=== PATIENT | male | born 1930 | race Caucasian/White ===

== ENCOUNTER 2019-03-18 01:46 | Observation (INO) | payer OTHER ==
[2019-03-18 02:51] LABS: Protime INR 1.17
[2019-03-18 02:52] LABS: Absolute Lymphocytes (CBC) 0.5 K/uL (0.7-4.9); Absolute Monocytes 0.3 K/uL (0.1-1.3); Absolute Neutrophil 3.5 K/uL (1.8-8.0); Basophils % 0.4 % (0-1.3); Eosinophils % 0.5 % (0-4.4); Hematocrit 37.5 % (39.6-49.0); Lymphocytes % 11.4 % (15.3-44.8); MPV 8.1 fL (7.6-11.3); Monocytes % 6.3 % (3.3-12.3); RBC Red Blood Cell Count 4.37 M/uL (4.33-5.43)
[2019-03-18 03:09] LABS: Albumin 3.8 g/dL (3.4-5.0); Bilirubin Direct 0.2 mg/dL (0-0.2); Bilirubin Total 0.6 mg/dL (0.2-1.0); Magnesium 2.6 mg/dL (1.8-2.4); Potassium 3.8 mmol/L (3.5-5.1); Protein, Total 7.3 g/dL (6.4-8.2)
--- NOTE | 2019-03-18 05:25 | EDPHYS ---
Physician Documentation [facility] Name: Jim Basilio Age: 88 yrs Sex: Male : 1930 Arrival Date: 03/18/2019 Time: 01:48 Bed 8 Private MD: ED Physician Harjit Meeks HPI: 03/18 03:22 This 88 yrs old Male presents to ER via Wheelchair with complaints of Chest tw4 Pain. 03:22 The patient or guardian reports chest pain that is located primarily in the anterior tw4 chest wall. Onset: today. The pain does not radiate. Associated signs and symptoms: The patient has no apparent associated signs or symptoms. The chest pain is described as dull. Duration: The patient or guardian reports a single episode. Modifying factors: The symptoms are alleviated by nothing. the symptoms are aggravated by nothing. Severity of pain: At its worst the pain was moderate in the emergency department the pain is unchanged. The patient has not experienced similar symptoms in the past. Historical: - Allergies: 02:28 No Known Allergies; ea - Home Meds: 02:28 gabapentin oral oral [Active]; Simvastatin Oral [Active]; ea - PMHx: 02:28 diabetes; ea - PSHx: 02:28 Hernia repair; ea - Immunization history:: Adult Immunizations up to date. - Social history:: Smoking status: Patient/guardian denies using tobacco. - Ebola Screening: : No symptoms or risks identified at this time. ROS: 03:22 Constitutional: Negative for fever, chills, and weight loss, Eyes: Negative for injury, tw4 pain, redness, and discharge, Respiratory: Negative for shortness of breath, cough, wheezing, and pleuritic chest pain, Abdomen/GI: Negative for abdominal pain, nausea, vomiting, diarrhea, and constipation, Back: Negative for injury and pain, MS/Extremity: Negative for injury and deformity, Skin: Negative for injury, rash, and discoloration, Neuro: Negative for headache, weakness, numbness, tingling, and seizure. 03:22 Cardiovascular: Positive for chest pain, Negative for edema, orthopnea, palpitations, paroxysmal nocturnal dyspnea. Exam: 03:22 Constitutional: This is a well developed, well nourished patient who is awake, alert, tw4 and in no acute distress. Head/Face: Normocephalic, atraumatic. Chest/axilla: Normal chest wall appearance and motion. Nontender with no deformity. No lesions are appreciated. Cardiovascular: Regular rate and rhythm with a normal S1 and S2. No gallops, murmurs, or rubs. Normal PMI, no JVD. No pulse deficits. Respiratory: Lungs have equal breath sounds bilaterally, clear to auscultation and percussion. No rales, rhonchi or wheezes noted. No increased work of breathing, no retractions or nasal flaring. Abdomen/GI: Soft, non-tender, with normal bowel sounds. No distension or tympany. No guarding or rebound. No evidence of tenderness throughout. Back: No spinal tenderness. No costovertebral tenderness. Full range of motion. MS/ Extremity: Pulses equal, no cyanosis. Neurovascular intact. Full, normal range of motion. Neuro: Awake and alert, GCS 15, oriented to person, place, time, and situation. Cranial nerves II-XII grossly intact. Motor strength 5/5 in all extremities. Sensory grossly intact. Cerebellar exam normal. Normal gait. Vital Signs: 02:00 BP 125 / 29; Pulse 68; Resp 18; Temp 98.2; Pulse Ox 99% ; Weight 55.34 kg; Height 5 ft. ea 3 in. (160.02 cm); Pain 5/10; 02:39 BP 134 / 41; Pulse 66; Resp 18; Pulse Ox 100% on R/A; ea 03:32 BP 117 / 54; Pulse 68; Resp 18; Pulse Ox 98% on R/A; tl2 04:11 BP 129 / 39; Pulse 67; Resp 18; Pulse Ox 98% on R/A; tl2 05:21 BP 121 / 73; Pulse 82; Resp 18; Pulse Ox 98% on R/A; ea 06:34 BP 116 / 60; Pulse 73; Resp 19; Temp 97.6(TE); Pulse Ox 98% on R/A; ea 07:15 BP 110 / 55; Pulse 65; Resp 15; Pulse Ox 95% ; sv 02:00 Body Mass Index 21.61 (55.34 kg, 160.02 cm) ea MDM: 02:10 Patient medically screened. tw4 03:22 Differential diagnosis: abnormal EKG, acute myocardial infarction, costochondritis, tw4 esophagitis, gastritis, herpes zoster, pancreatitis, peptic ulcer disease, pericarditis, pneumonia, unstable angina. Data reviewed: vital signs, nurses notes. Data interpreted: Pulse oximetry: Interpretation: normal. Counseling: I had a detailed discussion with the patient and/or guardian regarding: the historical points, exam findings, and any diagnostic results supporting the discharge/admit diagnosis. 07:00 Physician consultation: Isaac Pope MD was called at 07:00, was contacted at 07:00, 4 regarding admission, to the telemetry unit. patient's condition, and will see patient in inpatient room. Admission orders: after a detailed discussion of the patient's condition and case, the admit orders are written by me. 03/18 02:12 Order name: Basic Metabolic Panel; Complete Time: 06:12 03/18 06:12 Interpretation: Normal except: GFR 86; GLUC 150. 03/18 02:12 Order name: CBC with Diff; Complete Time: 06:12 03/18 06:12 Interpretation: Normal except: HGB 13.2; HCT 37.5; PLT 126. 03/18 02:12 Order name: LFT's; Complete Time: 06:12 03/18 06:12 Interpretation: Within normal limits. 03/18 02:12 Order name: Magnesium; Complete Time: 06:12 03/18 06:12 Interpretation: Normal except: MG 2.6. 03/18 02:12 Order name: NT PRO-BNP; Complete Time: 06:13 03/18 06:13 Interpretation: Within normal limits: NT PRO-BNP 380. 03/18 02:12 Order name: PT-INR; Complete Time: 06:12 03/18 06:12 Interpretation: Normal except: PT 13.7. 03/18 02:12 Order name: Troponin (emerg Dept Use Only); Complete Time: 06:13 03/18 06:13 Interpretation: Within normal limits: TROPED < 0.02. 03/18 07:15 Order name: Basic Metabolic Panel EDMS 03/18 07:15 Order name: Basic Metabolic Panel EDMS 03/18 07:15 Order name: CBC with Automated Diff EDMS 03/18 07:15 Order name: CBC with Automated Diff EDMS 03/18 07:15 Order name: Troponin I [facility] 03/18 07:15 Order name: Troponin I [facility] 03/18 07:15 Order name: Troponin I [facility] 03/18 02:12 Order name: XRAY Chest (1 view) 03/18 02:12 Order name: EKG; Complete Time: 02:13 03/18 02:12 Order name: Cardiac monitoring; Complete Time: 02:20 03/18 02:12 Order name: EKG - Nurse/Tech; Complete Time: 02:20 03/18 02:12 Order name: IV Saline Lock; Complete Time: 02:42 03/18 02:12 Order name: Labs collected and sent; Complete Time: 02:42 03/18 02:12 Order name: O2 Per Protocol; Complete Time: 02:20 03/18 02:12 Order name: O2 Sat Monitoring; Complete Time: 02:21 03/18 02:31 Order name: CT Chest For PE Angio [facility] 03/18 07:15 Order name: EKG Electrocardiogram [facility] 03/18 07:15 Order name: EKG Electrocardiogram [facility] 03/18 07:15 Order name: EKG Electrocardiogram [facility] 03/18 07:15 Order name: EKG Electrocardiogram [facility] EC:01 Rate is 66 beats/min. Rhythm is regular. QRS [place] is Normal. SC interval is normal. QRS tw4 interval is normal. QT interval is normal. No Q waves. T waves are Normal. No ST changes noted. Clinical impression: NSR w/ Non-specific ST/T Changes. Interpreted by me. Reviewed by me. Administered Medications: No medications were administered Disposition: 03/18/19 05:24 Hospitalization ordered by Isaac Pope for Observation. Preliminary diagnosis is Chest pain, unspecified. - Bed requested for Telemetry/MedSurg (observation). - Status is Observation. sv - Condition is Stable. - Problem is new. - Symptoms have improved. UTI on Admission? No Signatures: Dispatcher [employer] EDMS Vania Burns RN Jyoti Mcgarry RN Dayanna Everett RN Harjit Quintana ea, MD MD tw4 Corrections: (The following items were deleted from the chart) 07:21 05:24 Hospitalization Ordered by Isaac Pope MD for Observation. Preliminary diagnosis dw is Chest pain, unspecified. Bed requested for Telemetry/MedSurg (observation). Status is Observation. Condition is Stable. Problem is new. Symptoms have improved. UTI on Admission? No. tw4 08:16 07:21 03/18/2019 05:24 Hospitalization Ordered by Isaac Pope MD for Observation. sv Preliminary diagnosis is Chest pain, unspecified. Bed requested for Telemetry/MedSurg (observation). Status is Observation. Condition is Stable. Problem is new. Symptoms have improved. UTI on Admission? No. dw
--- NOTE | 2019-03-18 05:25 | ER ---
Nurse's Notes [facility] Name: Jim Basilio Age: 88 yrs Sex: Male : 1930 Arrival Date: 03/18/2019 Time: 01:48 Bed 8 Private MD: Diagnosis: Chest pain, unspecified Presentation: 03/18 02:00 Acuity: JESSICA 3 ea 02:00 Presenting complaint: Patient states: Pt reports he woke up about an hour ago with ea chest pain that radiated to back and neck, pt reports that when he takes deep breaths his chest hurts. Transition of care: patient was not received from another setting of care. Onset of symptoms was March 18, 2019. Risk Assessment: Do you want to hurt yourself or someone else? Patient reports no desire to harm self or others. Initial Sepsis Screen: Does the patient meet any 2 criteria? No. Patient's initial sepsis screen is negative. Does the patient have a suspected source of infection? No. Patient's initial sepsis screen is negative. Care prior to arrival: Medication(s) given: ASA, 81 mg, x 3. 02:00 Method Of Arrival: Wheelchair ea Historical: - Allergies: 02:28 No Known Allergies; ea - Home Meds: 02:28 gabapentin oral oral [Active]; Simvastatin Oral [Active]; ea - PMHx: 02:28 diabetes; ea - PSHx: 02:28 Hernia repair; ea - Immunization history:: Adult Immunizations up to date. - Social history:: Smoking status: Patient/guardian denies using tobacco. - Ebola Screening: : No symptoms or risks identified at this time. Screenin:24 Abuse screen: Denies threats or abuse. Nutritional screening: No deficits noted. ea Tuberculosis screening: No symptoms or risk factors identified. Fall Risk None identified. Assessment: 02:00 General: Appears uncomfortable, Behavior is calm, cooperative, appropriate for age. ea Pain: Complains of pain in chest Pain radiates to back and neck Pain currently is 5 out of 10 on a pain scale. Pain began 1 hour ago. Neuro: Level of Consciousness is awake, alert, obeys commands, Oriented to person, place, time, situation. Cardiovascular: Heart tones S1 S2 present Patient's skin is warm and dry. Respiratory: Airway is patent Respiratory effort is even, unlabored, Respiratory pattern is regular, symmetrical. Derm: Skin is pink, warm \T\ dry. 03:00 Reassessment: Patient and/or family updated on plan of care and expected duration. Pain ea level reassessed. Patient is alert, oriented x 3, equal unlabored respirations, skin warm/dry/pink. Awaiting on lab results. 04:30 Reassessment: Patient and/or family updated on plan of care and expected duration. Pain ea level reassessed. Patient is alert, oriented x 3, equal unlabored respirations, skin warm/dry/pink. 05:30 Reassessment: Patient and/or family updated on plan of care and expected duration. Pain ea level reassessed. Patient is alert, oriented x 3, equal unlabored respirations, skin warm/dry/pink. Awaiting on room assignment. Vital Signs: 02:00 BP 125 / 29; Pulse 68; Resp 18; Temp 98.2; Pulse Ox 99% ; Weight 55.34 kg; Height 5 ft. ea 3 in. (160.02 cm); Pain 5/10; 02:39 BP 134 / 41; Pulse 66; Resp 18; Pulse Ox 100% on R/A; ea 03:32 BP 117 / 54; Pulse 68; Resp 18; Pulse Ox 98% on R/A; tl2 04:11 BP 129 / 39; Pulse 67; Resp 18; Pulse Ox 98% on R/A; tl2 05:21 BP 121 / 73; Pulse 82; Resp 18; Pulse Ox 98% on R/A; ea 06:34 BP 116 / 60; Pulse 73; Resp 19; Temp 97.6(TE); Pulse Ox 98% on R/A; ea 07:15 BP 110 / 55; Pulse 65; Resp 15; Pulse Ox 95% ; sv 02:00 Body Mass Index 21.61 (55.34 kg, 160.02 cm) ea ED Course: 01:48 Patient arrived in ED. es 02:00 Patient has correct armband on for positive identification. Bed in low position. Call ea light in reach. Side rails up X2. traffic monitor specialist on. Pulse ox on. NIBP on. 02:00 Arm band placed on right wrist. Patient placed in an exam room, on a stretcher, on ea pulse oximetry. 02:10 Harjit Meeks MD is Attending Physician. tw4 02:20 Dayanna Briceno, RN is Primary Nurse. ea 02:28 Patient maintains SpO2 saturation greater than 95% on room air. ea 02:31 X-ray completed. Portable x-ray completed in exam room. Patient tolerated procedure kw well. 02:32 XRAY Chest (1 view) In Process Unspecified. EDMS 02:38 Inserted saline lock: 20 gauge in right forearm, using aseptic technique. Blood ea collected. 02:42 Triage completed. ea 03:02 Radiology exam delayed due to lab results not completed at this time. (BUN/Creatinine). kw1 04:30 CT Chest For PE Angio In Process Unspecified. EDMS 05:24 Isaac Pope MD is Hospitalizing Provider. tw4 06:09 No provider procedures requiring assistance completed. Patient admitted, IV remains in ea place. Administered Medications: No medications were administered Outcome: 05:24 Decision to Hospitalize by Provider. tw4 07:55 Admitted to Tele accompanied by tech, family with patient, via wheelchair, room 424, sv with chart, Report called to Luciana VELASQUEZ 07:55 Condition: stable 07:55 Instructed on the need for admit. 08:16 Patient left the ED. sv Signatures: Dispatcher [employer] Vania Flores RN RN sv Salyer, Edna es Whitley, Kimberlee kw Knox, Taylor, RN RN tl2 Dayanna Briceno, Mady Braun RN, ea, Terrence, MD MD tw4
[2019-03-18] MEDS ORDERED: ACETAMINOPHEN 500 MG TAB PO PRN (07:14)
--- NOTE | 2019-03-18 07:53 | EKG ---
Test Date: 2019-03-18 Test Time: 02:17:04 Farm Laborer: RODRIGUEZ MEASUREMENT RESULTS: Intervals: Rate: 66 HI: 160 QRSD: 86 QT: 388 QTc: 406 [place]: P: 43 HI: 160 QRS: -1 T: 50 INTERPRETIVE STATEMENTS: Normal sinus rhythm Normal ECG Compared to ECG 03/18/2019 02:10:45 Atrial premature complex(es) no longer present ST (T wave) deviation no longer present Myocardial infarct finding no longer present Electronically Signed On 03-18-19 07:52:29 CDT by Filipe Lubin
--- NOTE | 2019-03-18 07:53 | EKG ---
Test Date: 2019-03-18 Test Time: 02:10:45 Civil Engineering Professor: RODRIGUEZ MEASUREMENT RESULTS: Intervals: Rate: 66 NH: 158 QRSD: 82 QT: 388 QTc: 406 [place]: P: 30 NH: 158 QRS: 1 T: 52 INTERPRETIVE STATEMENTS: Sinus rhythm with premature atrial complexes Non specific ST abnormality Abnormal ECG Compared to ECG 12/16/2010 18:26:36 Atrial premature complex(es) now present ST (T wave) deviation now present Sinus bradycardia no longer present Electronically Signed On 03-18-19 07:53:20 CDT by Filipe Lubin
--- NOTE | 2019-03-18 07:54 | RAD REPORT ---
EXAM DESCRIPTION: Tushar Single View03/18/2019 2:32 am CLINICAL HISTORY: Chest pain COMPARISON: 2010 FINDINGS: The lungs appear clear of acute infiltrate. The heart is normal size IMPRESSION: No acute abnormalities displayed
[2019-03-18 08:32] VITALS: BMI 21.6
[2019-03-18] MEDS ORDERED: ASPIRIN EC 81 MG TAB PO SCH (09:00)
--- NOTE | 2019-03-18 10:11 | RAD REPORT ---
EXAM DESCRIPTION: CT - Chest For Pe Angio - 03/18/2019 4:29 am CLINICAL HISTORY: CHEST PAIN COMPARISON: None. TECHNIQUE: CT CHEST ANGIOGRAPHY WITH IV CONTRAST on 03/18/2019 2:31 AM CDT. MIPS reconstructions were generated. This exam was performed according to our departmental dose-optimization program, which includes autom ated exposure control, adjustment of the mA and/or kV according to patient size and/or use of iterati ve reconstruction technique. MIP images were generated. FINDINGS: Thoracic aorta is normal in course and caliber without aneurysm or dissection. Pulmonary a rteries are adequately opacified without acute or chronic filling defects. The heart is mildly enlarged. There is no pericardial effusion. Intrathoracic lymph nodes are not enl arged. There is no pleural effusion, pleural thickening or pneumothorax. Central airways are patent. There i s a 7 mm nodule in the anterior aspect of the superior segment of the right lower lobe. There are no acute abnormalities within the limited images of the upper abdomen. There are no acute osseous findings. No suspicious bony lesions. IMPRESSION: No aortic dissection or aneurysm. No pulmonary embolus. 7.0 mm solid pulmonary nodule. Recommend a non-contrast Chest CT at 6-12 months, then consider an add itional non-contrast Chest CT at 18-24 months. These guidelines do not apply to patients younger than 35 years, immunocompromised patients, and julián ents with cancer. Follow up in patients with significant comorbidities as clinically warranted. For l mal[place] cancer screening, adhere to Lung-RADS guidelines. Reference: Radiology. 2017; 284(1):228-43. Electronically signed by: Raphael Padron MD 03/18/2019 4:42 AM CDT Due to temporary technical issues with the PACS/Fluency reporting system, reports are being signed by the in house radiologist as a courtesy to ensure prompt reporting. The interpreting radiologist is f ully responsible for the content of the report.
[2019-03-18] MEDS ORDERED: DEXAMETHASONE 10 MG/ML VIAL IV ONE (13:09)
[2019-03-18 17:00] VITALS: BP 131/51; TEMP 97.5
--- NOTE | 2019-03-18 18:06 | P.SSS ---
Patient History Date of Service: 03/18/19 Reason for admission: CHEST AND BACK PAIN. History of Present Illness: MR. 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 IT WAS UNBEARABLE AND STILL HURTS FOR HOURS CONSTANTLY. HE HAS NO DIAPHORESIS, NAUSEA, VOMITING OR WEAKNESS. PAIN IS AT REST. Allergies No Known Allergies Allergy (Unverified 03/18/19 07:35) Home Medications: Gabapentin 100 mg PO BEDTIME 03/18/19 Methylprednisolone [Medrol dosepack] 4 mg PO DIRECTED #1 jennifer 03/18/19 Simvastatin 20 mg PO BEDTIME 03/18/19 Sitagliptin Phosphate [Januvia*] 100 mg PO DAILY 03/18/19 - Past Medical/Surgical History Has patient received pneumonia vaccine in the past: Yes Diabetic: Yes -: NIDDM -: Inguinal hernia repair X3 - Social History Smoking Status: Never smoker Alcohol use: No CD- Drugs: No Caffeine use: Yes Place of Residence: Home Review of Systems 10-point ROS is otherwise unremarkable General: Weakness, Malaise Musculoskeletal: Neck Pain, Back Pain Physical Examination - Vital Signs Temperature: 97.5 F Blood Pressure: 131/51 Pulse: 76 Respirations: 18 Pulse Ox (%): 98 - Physical Exam General: Alert, Mild distress HEENT: Atraumatic, PERRLA, Mucous membr. moist/pink, EOMI, Sclerae nonicteric Neck: Supple, 2+ carotid pulse no bruit, No LAD, Without JVD or thyroid abnormality Respiratory: Clear to auscultation bilaterally, Normal air movement Cardiovascular: Regular rate/rhythm, Normal S1 S2 Gastrointestinal: Normal bowel sounds, No tenderness Musculoskeletal: No tenderness Integumentary: No rashes Neurological: Normal gait, Normal speech, Normal strength at 5/5 x4 extr, Normal tone, Normal affect Lymphatics: No axilla or inguinal lymphadenopathy - Studies Laboratory Data (last 24 hrs) 03/18/19 02:39: PT 13.7 H, INR 1.17 03/18/19 02:39: WBC 4.3, Hgb 13.2 L, Hct 37.5 L, Plt Count 126 L 03/18/19 02:39: Sodium 136, Potassium 3.8, BUN 16, Creatinine 0.84, Glucose 150 H, Magnesium 2.6 H, Total Bilirubin 0.6, AST 26, ALT 25, Alkaline Phosphatase 50 - Diagnosis (Problem(s)) (1) Atypical chest pain Current Visit: Yes Status: Acute Plan: PAIN HAS NON CARDIAC CHARACTER. I GAVE HIM A DOSE OF STEROID AND HE IMPROVED SIGNIFICANTLY. 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 HIS CARDIAC ENZYMES ARE NEGATIVE. HE WILL FUI OFFICE. HE HAS MEDROL DOSE PACK IF HE CONTINUES TO HAVE PAIN. - Disposition Disposition: ROUTINE DISCHARGE Condition: FAIR
[2019-03-18 18:23] VITALS: O2SAT 96
== END 2019-03-18 18:50 | disposition home or self-care (01) ==
LOC: ER 01:46 → ERHOLD 07:13 → 4TH 07:55
PROVIDERS: ADMIT Internal Medicine; ATTEND Internal Medicine
DX: R07.89 Other chest pain (principal); M54.9 Dorsalgia, unspecified; M54.2 Cervicalgia; R94.31 Abnormal electrocardiogram [ECG] [EKG]; I49.1 Atrial premature depolarization; R91.1 Solitary pulmonary nodule; E11.9 Type 2 diabetes mellitus without complications; M19.90 Unspecified osteoarthritis, unspecified site; Z79.84 Long term (current) use of oral hypoglycemic drugs; Z79.899 Other long term (current) drug therapy
CPT/HCPCS: 93005 ×2; 85025; 80048; 36415; 83735; 85610; 82962 ×3; 80076; 84484 ×3; 83880; 71275; 71045; 99285; Q9967; J1100; G0378 ×2

== ENCOUNTER 2020-09-23 14:47 | Emergency (ER) | payer OTHER ==
[2020-09-23 16:17] LABS: Absolute Lymphocytes (CBC) 0.6 K/uL (0.7-4.9); Basophils % 0.4 % (0-1.3); Hematocrit 37.8 % (39.6-49.0); Lymphocytes % 12.8 % (15.3-44.8); MPV 7.8 fL (7.6-11.3); RBC Red Blood Cell Count 4.39 M/uL (4.33-5.43)
--- NOTE | 2020-09-23 16:32 | RAD REPORT ---
EXAM DESCRIPTION: RAD - Chest Single View - 09/23/2020 4:00 pm CLINICAL HISTORY: COUGH Chest pain. COMPARISON: Chest Pa And Lat (2 Views) dated 10/21/2019; Chest Single View dated 03/18/2019; CHEST PA AND LAT 2 VIEW dated 08/29/2011; ABDOMEN ACUTE SERIES dated 12/16/2010 FINDINGS: Portable technique limits examination quality. The lungs are grossly clear. The heart is normal in size. No displaced fractures. IMPRESSION: No acute intrathoracic process suspected.
[2020-09-23 16:57] LABS: ALT/SGPT 22 U/L (12-78); AST/SGOT 20 U/L (15-37); Albumin 3.3 g/dL (3.4-5.0); Alkaline Phosphatase 52 U/L (45-117); BUN Blood Urea Nitrogen 15 mg/dL (7-18); Bicarbonate 27 mmol/L (21-32); Bilirubin Direct 0.1 mg/dL (0-0.2); Bilirubin Total 0.5 mg/dL (0.2-1.0); Glucose Level 267 mg/dL (74-106); Lipase 62 U/L (73-393); Magnesium 2.2 mg/dL (1.8-2.4); NT PRO-BNP 274 pg/mL (<450); Potassium 4.3 mmol/L (3.5-5.1); Protein, Total 6.9 g/dL (6.4-8.2); Sodium Level 135 mmol/L (136-145); Troponin (Emerg Dept Use Only) < 0.02 ng/mL (0.0-0.045)
[2020-09-23 17:18] LABS: Urine Blood NEGATIVE (NEG); Urine Glucose NEGATIVE (NEG); Urine Protein NEGATIVE (NEG); Urine Specific Gravity 1.015 (1.005-1.030); Urine pH 5.5 (5.0-7.0)
--- NOTE | 2020-09-23 17:36 | RAD REPORT ---
EXAM DESCRIPTION: CTAbdomen Pelvis W Contrast - 09/23/2020 5:01 pm CLINICAL HISTORY: Abdominal pain. ABD PAIN COMPARISON: Abdomen Pelvis W Contrast dated 11/20/2017; CT ABD PELVIS W CONTRAST dated 03/31/2011 TECHNIQUE: Biphasic CT imaging of the abdomen and pelvis was performed with 100 ml non-ionic IV cont rast. All CT scans are performed using dose optimization technique as appropriate and may include automated exposure control or mA/KV adjustment according to patient size. 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 The liver demonstrates no focal mass or biliary dilatation. Tiny nonspecific 2 mm low-density lesion in the left lobe liver seen. Spleen is mildly prominent. There is dilatation of the pancreatic duct seen, a new finding since [address] study. There is a vague hypoenhancing lesion possibly present in the pancreatic head measuring 12-13 mm. The adrenal glands and kidneys are within normal limits. No bowel obstruction, free air, abscess. Prominent stool is seen retained in the colon. Small right i nguinal hernia containing fat as well as the appendix is noted. No evidence of significant lymphaden opathy. Moderate lumbar degenerative changes are present. IMPRESSION: The pancreatic duct appears dilated with suggestion of a possible vague pancreatic head mass present. Recommend follow-up imaging of the pancreas with MRI abdomen/ MRCP. Significant stool is present throughout the colon. Small right inguinal hernia.
--- NOTE | 2020-09-23 18:56 | EDPHYS ---
Physician Documentation [facility] Name: Jim Basilio Age: 89 yrs Sex: Male : 1930 Arrival Date: 09/23/2020 Time: 14:53 Bed 23 Private MD: Isaac Pope V ED Physician Russ Billings HPI: 09/23 16:36 This 89 yrs old Male presents to ER via Wheelchair with complaints of yulisa Abdominal Pain, Side Pain. 16:36 The patient presents with abdominal pain right lower quadrant. Onset: The yulisa symptoms/episode began/occurred 2 day(s) ago. The patient presents with pain that is acute, and decreased range of motion. The symptoms are located in the low back, right mid back and right low back. Onset: The symptoms/episode began/occurred 2 day(s) ago. Location: right mid back and right low back. Associated signs and symptoms: The patient has no apparent associated signs or symptoms. The problem was sustained from unknown cause. Modifying factors: The patient symptoms are alleviated by nothing, the patient symptoms are aggravated by nothing. Severity of symptoms: At their worst the symptoms were mild, moderate, in the emergency department the symptoms have improved, moderately. Historical: - Allergies: 15:12 No Known Allergies; iw - Immunization history:: Adult Immunizations unknown. - Social history:: Smoking status: unknown. - Family history:: not pertinent. ROS: 16:36 Constitutional: Negative for fever, chills, and weight loss, Eyes: Negative for injury, yulisa pain, redness, and discharge, ENT: Negative for injury, pain, and discharge, Neck: Negative for injury, pain, and swelling, Cardiovascular: Negative for chest pain, palpitations, and edema, Respiratory: Negative for shortness of breath, cough, wheezing, and pleuritic chest pain, : Negative for injury, bleeding, discharge, and swelling, MS/Extremity: Negative for injury and deformity, Skin: Negative for injury, rash, and discoloration, Neuro: Negative for headache, weakness, numbness, tingling, and seizure, Psych: Negative for depression, anxiety, suicide ideation, homicidal ideation, and hallucinations, Allergy/Immunology: Negative for hives, rash, and allergies, Endocrine: Negative for neck swelling, polydipsia, polyuria, polyphagia, and marked weight changes, Hematologic/Lymphatic: Negative for swollen nodes, abnormal bleeding, and unusual bruising. 16:36 Abdomen/GI: Positive for abdominal pain, of the anterior aspect of right lateral abdomen, posterior aspect of right lateral abdomen and right lower quadrant. 16:36 : Negative for injury or acute deformity, urinary symptoms, urinary frequency, penile pain, testicular pain Exam: 16:36 Constitutional: This is a well developed, well nourished patient who is awake, alert, yulisa and in no acute distress. Head/Face: Normocephalic, atraumatic. Eyes: Pupils equal round and reactive to light, extra-ocular motions intact. Lids and lashes normal. Conjunctiva and sclera are non-icteric and not injected. Cornea within normal limits. Periorbital areas with no swelling, redness, or edema. ENT: Nares patent. No nasal discharge, no septal abnormalities noted. Tympanic membranes are normal and external auditory canals are clear. Oropharynx with no redness, swelling, or masses, exudates, or evidence of obstruction, uvula midline. Mucous membranes moist. Neck: Trachea midline, no thyromegaly or masses palpated, and no cervical lymphadenopathy. Supple, full range of motion without nuchal rigidity, or vertebral point tenderness. No Meningismus. Chest/axilla: Normal chest wall appearance and motion. Nontender with no deformity. No lesions are appreciated. Cardiovascular: Regular rate and rhythm with a normal S1 and S2. No gallops, murmurs, or rubs. Normal PMI, no JVD. No pulse deficits. Respiratory: Lungs have equal breath sounds bilaterally, clear to auscultation and percussion. No rales, rhonchi or wheezes noted. No increased work of breathing, no retractions or nasal flaring. Back: No spinal tenderness. No costovertebral tenderness. Full range of motion. Skin: Warm, dry with normal turgor. Normal color with no rashes, no lesions, and no evidence of cellulitis. MS/ Extremity: Pulses equal, no cyanosis. Neurovascular intact. Full, normal range of motion. Neuro: Awake and alert, GCS 15, oriented to person, place, time, and situation. Cranial nerves II-XII grossly intact. Motor strength 5/5 in all extremities. Sensory grossly intact. Cerebellar exam normal. Normal gait. Psych: Awake, alert, with orientation to person, place and time. Behavior, mood, and affect are within normal limits. 16:36 Abdomen/GI: Inspection: abdomen appears normal, Bowel sounds: normal, Palpation: mild abdominal tenderness, in the right lower quadrant and left lower quadrant, Liver: no appreciated palpable abnormalities, Hernia: not appreciated. 16:41 ECG was reviewed by the Attending Physician. [facility] Vital Signs: 15:11 BP 104 / 54; Pulse 66; Resp 18; Temp 98.2; Pulse Ox 100% on R/A; Weight 53.52 kg (R); iw Height 5 ft. 1 in. (154.94 cm); Pain 10/10; 16:25 BP 122 / 56; Pulse 54; Resp 18; Pulse Ox 100% on R/A; aj1 17:58 BP 128 / 54; Pulse 52; Resp 18; Pulse Ox 100% on R/A; aj1 18:59 BP 126 / 70; Pulse 63; Resp 18; Pulse Ox 100% on R/A; aj1 15:11 Body Mass Index 22.30 (53.52 kg, 154.94 cm) iw MDM: 15:22 Patient medically screened. yulisa 16:38 Differential diagnosis: Cholelithiasis Hydronephrosis Leaking Aortic Aneurysm Obesity yulisa Pyelonephritis Renal Infarction Ureterolithiasis AAA, cholecystitis, Cholelithiasis, diverticulitis, Irritable bowel syndrome, Mesenteric ischemia or infarction, non-specific abd pain, pancreatitis, Perf. Gastric Ulcer. Data reviewed: vital signs, nurses notes, lab test result(s), EKG, radiologic studies, CT scan, plain films. Data interpreted: monitoring and evaluation advisor: rate is 54 beats/min, rhythm is regular, Pulse oximetry: on room air is 100 %. Test interpretation: by ED physician or midlevel provider: ECG, plain radiologic studies. Counseling: I had a detailed discussion with the patient and/or guardian regarding: the historical points, exam findings, and any diagnostic results supporting the discharge/admit diagnosis, lab results, radiology results. 09/23 15: Order name: Basic Metabolic Panel; Complete Time: 17:07 [facility] 09/23 15:29 Order name: CBC with Diff; Complete Time: 16:34 [facility] 09/23 15: Order name: LFT's; Complete Time: 17: [facility] 09/23 15:29 Order name: Magnesium; Complete Time: 17: [facility] 09/23 15:29 Order name: NT PRO-BNP; Complete Time: 17:07 [facility] 09/23 15:29 Order name: Troponin (emerg Dept Use Only); Complete Time: 17:07 [facility] 09/23 15:29 Order name: XRAY Chest (1 view); Complete Time: 17:07 [facility] 09/23 15:29 Order name: EKG; Complete Time: 15:30 [facility] 09/23 15:29 Order name: Lipase; Complete Time: 17:07 [facility] 09/23 15:29 Order name: Urine Culture [facility] 09/23 15:29 Order name: CT Abd/Pelvis - IV Contrast Only; Complete Time: 17:44 [facility] 09/23 16:57 Order name: Urine Dipstick--Ancillary (enter results); Complete Time: 17:44 [facility] 09/23 15:29 Order name: Cardiac monitoring; Complete Time: 15:38 [facility] 09/23 15:29 Order name: EKG - Nurse/Tech; Complete Time: 15:38 [facility] 09/23 15:29 Order name: IV Saline Lock; Complete Time: 16:09 [facility] 09/23 15:29 Order name: Labs collected and sent; Complete Time: 16:09 [facility] 09/23 15:29 Order name: O2 Per Protocol; Complete Time: 15:30 [facility] 09/23 15:29 Order name: O2 Sat Monitoring; Complete Time: 15:30 [facility] 09/23 15:29 Order name: Urine Dipstick-Ancillary (obtain specimen); Complete Time: 16:55 yulisa EC:41 Rate is 60 beats/min. Rhythm is regular. QRS [place] is Normal. MA interval is normal. QRS yulisa interval is normal. QT interval is normal. No Q waves. T waves are Normal. No ST changes noted. Clinical impression: NSR w/ Non-specific ST/T Changes and No evidence of ischemia. Interpreted by me. Reviewed by me. Administered Medications: 19:18 Drug: Lactulose 30 grams Volume: 45 ml; Route: PO; aj1 19:18 Follow up: Response: No adverse reaction aj1 19:18 Drug: Dulcolax Suppository 10 mg Route: MA; aj1 19:18 Follow up: Response: No adverse reaction aj1 Disposition: 09/23/20 18:54 Discharged to Home. Impression: Constipation, Abdominal tenderness, Type 2 diabetes mellitus. - Condition is Stable. - Discharge Instructions: Abdominal Pain, Adult, Constipation, Adult, Type 2 Diabetes Mellitus, Diagnosis, Adult, Constipation, Adult, [id number], Abdominal Pain, Adult, [id number], Type 2 Diabetes Mellitus, Diagnosis, Adult, [id number]. - Prescriptions for Bentyl 20 mg Oral Tablet - take 1 tablet by ORAL route every 6 hours As needed; 20 tablet. Lactulose 10 gram/15 mL Oral Solution - take 30 milliliters by ORAL route once daily; 200 milliliter. Dulcolax 10 mg Rectal Suppository - insert 1 suppository by RECTAL route every 12 hours As needed; 10 suppository. - Medication Reconciliation Form, Thank You Letter, Antibiotic Education, Prescription Opioid Use form. - Follow up: Isaac Pope MD; When: 2 - 3 days; Reason: Recheck today's complaints, Re-evaluation by your physician. Follow up: Wojciech Guadalupe MD; When: 2 - 3 days; Reason: Recheck today's complaints, Re-evaluation by your physician. - Problem is new. - Symptoms have improved. Signatures: Dispatcher [employer] EDMS Melissa Up RN RN aj1 Russ Billings MD MD cha Williams, Irene, RN RN iw Fareed Tidwell RN RN jd3 Corrections: (The following items were deleted from the chart) 19:19 18:54 09/23/2020 18:54 Discharged to Home. Impression: Constipation; Abdominal aj1 tenderness; Type 2 diabetes mellitus. Condition is Stable. Forms are Medication Reconciliation Form, Thank You Letter, Antibiotic Education, Prescription Opioid Use. Follow up: Isaac Pope; When: 2 - 3 days; Reason: Recheck today's complaints, Re-evaluation by your physician. Follow up: Wojciech Guadalupe; When: 2 - 3 days; Reason: Recheck today's complaints, Re-evaluation by your physician. Problem is new. Symptoms have improved. yulisa
--- NOTE | 2020-09-23 18:56 | ER ---
Nurse's Notes [facility] Name: Jim Basilio Age: 89 yrs Sex: Male : 1930 Arrival Date: 09/23/2020 Time: 14:53 Bed 23 Private MD: Isaac Pope V Diagnosis: Constipation;Abdominal tenderness;Type 2 diabetes mellitus Presentation: 09/23 15:08 Chief complaint: Patient states: i started having severe lower back pain and it goes iw into my lower stomach and and right hip about two days ago. I called and made an appointment with Dr. Pope for today but i was in too much pain to make it. I also use intermittent self catheters. Coronavirus screen: Client denies travel out of the [place] in the last 14 days. Ebola Screen: No symptoms or risks identified at this time. 15:08 Method Of Arrival: Wheelchair iw 15:11 Initial Sepsis Screen: Does the patient meet any 2 criteria? No. Patient's initial iw sepsis screen is negative. Does the patient have a suspected source of infection? No. Patient's initial sepsis screen is negative. Risk Assessment: Do you want to hurt yourself or someone else? Patient reports no desire to harm self or others. Onset of symptoms is unknown. 15:11 Acuity: JESSICA 3 iw Historical: - Allergies: 15:12 No Known Allergies; iw - Immunization history:: Adult Immunizations unknown. - Social history:: Smoking status: unknown. - Family history:: not pertinent. Screenin:23 Abuse screen: Denies threats or abuse. Nutritional screening: No deficits noted. jd3 Tuberculosis screening: No symptoms or risk factors identified. Fall Risk Ambulatory Aid- None/Bed Rest/Nurse Assist (0 pts). Gait- Normal/Bed Rest/Wheelchair (0 pts) Mental Status- Oriented to own ability (0 pts). Total Dutton Fall Scale indicates No Risk (0-24 pts). Assessment: 15:21 General: Appears in no apparent distress. uncomfortable, Behavior is calm, cooperative, jd3 appropriate for age. Pain: Complains of pain in suprapubic area Pain radiates to low back area and right leg Quality of pain is described as radiating, sharp, tender. Neuro: Level of Consciousness is awake, alert, obeys commands, Oriented to person, place, time, situation. Cardiovascular: Denies chest pain, Capillary refill < 3 seconds Patient's skin is warm and dry. Respiratory: Airway is patent Respiratory effort is even, unlabored, Respiratory pattern is regular, symmetrical, Denies cough, shortness of breath. GI: Abdomen is round non-distended, Abd is soft and non tender X 4 quads. Reports lower abdominal pain, Patient currently denies constipation, diarrhea, nausea, vomiting. : No signs and/or symptoms were reported regarding the genitourinary system. Denies urinary frequency, urgency. EENT: No signs and/or symptoms were reported regarding the EENT system. Derm: Skin is intact, Skin is dry, Skin is normal, Skin temperature is warm. Musculoskeletal: Circulation, motion, and sensation intact. Range of motion: intact in all extremities. 16:23 General: Appears in no apparent distress. comfortable, Behavior is calm, cooperative, aj1 appropriate for age. Neuro: Level of Consciousness is awake, alert, obeys commands, Oriented to person, place. Cardiovascular: Patient's skin is warm and dry. Respiratory: Airway is patent Respiratory effort is even, unlabored, Respiratory pattern is regular, symmetrical. Derm: Skin is pink, warm \T\ dry. normal. Musculoskeletal: Circulation, motion, and sensation intact. 16:27 Reassessment: Dr. Billings at bedside to evaluate patient. aj1 17:30 Reassessment: Patient appears in no apparent distress at this time. No changes from aj1 previously documented assessment. Patient and/or family updated on plan of care and expected duration. Pain level reassessed. Patient is alert, oriented x 3, equal unlabored respirations, skin warm/dry/pink. 18:30 Reassessment: Patient appears in no apparent distress at this time. No changes from aj1 previously documented assessment. Patient and/or family updated on plan of care and expected duration. Pain level reassessed. Patient is alert, oriented x 3, equal unlabored respirations, skin warm/dry/pink. 18:59 Reassessment: Dr. Billings at bedside to explain to patient diagnostic test results. aj1 Vital Signs: 15:11 BP 104 / 54; Pulse 66; Resp 18; Temp 98.2; Pulse Ox 100% on R/A; Weight 53.52 kg (R); iw Height 5 ft. 1 in. (154.94 cm); Pain 10/10; 16:25 BP 122 / 56; Pulse 54; Resp 18; Pulse Ox 100% on R/A; aj1 17:58 BP 128 / 54; Pulse 52; Resp 18; Pulse Ox 100% on R/A; aj1 18:59 BP 126 / 70; Pulse 63; Resp 18; Pulse Ox 100% on R/A; aj1 15:11 Body Mass Index 22.30 (53.52 kg, 154.94 cm) ED Course: 14:53 Patient arrived in ED. ag5 14:53 Isaac Pope MD is Private Physician. ag5 15:11 Triage completed. iw 15:12 Arm band placed on left wrist. iw 15:14 Fareed Tidwell, EVA is Primary Nurse. jd3 15:22 Russ Billings MD is Attending Physician. yulisa 15:23 Patient has correct armband on for positive identification. Bed in low position. Call jd3 light in reach. Side rails up X 1. Adult w/ patient. Pulse ox on. NIBP on. 16:00 Missed attempt(s): 20 gauge in right forearm. Bleeding controlled, band aid applied, aj1 catheter tip intact. 16:01 Missed attempt(s): 22 gauge in right forearm. Bleeding controlled, band aid applied, aj1 catheter tip intact. 16:02 XRAY Chest (1 view) In Process Unspecified. EDMS 16:09 Initial lab(s) drawn, by sc, sent to lab. Inserted saline lock: 22 gauge in right iw forearm, using aseptic technique. Blood collected. 17:01 CT Abd/Pelvis - IV Contrast Only In Process Unspecified. EDMS 18:52 Isaac Pope MD is Referral Physician. yulisa 18:53 Wojciech Guadalupe MD is Referral Physician. yulisa 19:18 No provider procedures requiring assistance completed. IV discontinued, intact, aj1 bleeding controlled, No redness/swelling at site. Pressure dressing applied. Administered Medications: 19:18 Drug: Lactulose 30 grams Volume: 45 ml; Route: PO; aj1 19:18 Follow up: Response: No adverse reaction aj1 19:18 Drug: Dulcolax Suppository 10 mg Route: MO; aj1 19:18 Follow up: Response: No adverse reaction aj1 Outcome: 18:54 Discharge ordered by . yulisa 19:19 Discharged to home ambulatory. aj1 19:19 Condition: good 19:19 Discharge instructions given to patient, family, Instructed on discharge instructions, follow up and referral plans. medication usage, Demonstrated understanding of instructions, follow-up care, medications, Prescriptions given X 3. 19:19 Patient left the ED. aj1 Signatures: Dispatcher [employer] EDMelissa Wong RN RN aj1 Russ Billings MD MD cha Williams, Irene RN Fareed Chang RN RN Bryan Abebe 5
[2020-09-23] MEDS ORDERED: BISACODYL 10 MG RECTAL SUPP ONE (19:19)
[2020-09-23] MEDS ORDERED: LACTULOSE 20 GM/30 ML UCUP ONE (19:19)
--- NOTE | 2020-09-24 06:24 | EKG ---
Test Date: 2020-09-23 Test Time: 15:35:09 Coal Picker: TONI MEASUREMENT RESULTS: Intervals: Rate: 60 CO: 152 QRSD: 88 QT: 416 QTc: 416 [place]: P: 59 CO: 152 QRS: 7 T: 52 INTERPRETIVE STATEMENTS: Normal sinus rhythm Normal ECG Compared to ECG 03/18/2019 02:17:04 No significant changes Electronically Signed On 09-24-20 06:22:38 CLIPPER MACHINE OPERATOR by Catalino Cheek
[2020-09-24 09:00] VITALS: TEMP 98.2; O2SAT 100
[2020-09-24 09:05] VITALS: BP 126/70
== END 2020-09-23 19:19 | disposition home or self-care (01) ==
LOC: ER 14:47
DX: K59.00 Constipation, unspecified (principal); E11.9 Type 2 diabetes mellitus without complications
CPT/HCPCS: 93005; 87088; 85025; 87086; 80048; 36415; 83735; 80076; 81003; 84484; 83690; 83880; 74177; 71045; 99284; Q9967

== ENCOUNTER 2021-08-24 12:52 | Inpatient (IN) | payer OTHER ==
[2021-08-24 15:59] LABS: Absolute Lymphocytes (CBC) 0.2 K/uL (0.7-4.9); Basophils % 0.5 % (0-1.3); Hematocrit 36.8 % (39.6-49.0); Lymphocytes % 9.9 % (15.3-44.8); MPV 8.2 fL (7.6-11.3); RBC Red Blood Cell Count 4.27 M/uL (4.33-5.43)
[2021-08-24] MEDS ORDERED: ONDANSETRON 4 MG/2 ML VIAL IV PRN (16:00)
[2021-08-24] MEDS ORDERED: POLYETHYL GLY 3350 17 GM/DOSE PO PRN (16:00)
[2021-08-24] MEDS ORDERED: DIPHENHYDRAMINE 25 MG TAB/CAP PO PRN (16:00)
[2021-08-24] MEDS ORDERED: ACETAMINOPHEN 325 MG TABLET PO PRN (16:00)
[2021-08-24] MEDS ORDERED: INFLUENZA VACCINE (for 6+ mo) 0.5 ML DOSE IMVAC ONE (16:00)
[2021-08-24] MEDS ORDERED: NACHLORIDE 0.45% 1,000 ML IV SCH (16:00)
[2021-08-24] MEDS ORDERED: LOPERAMIDE HCL 2 MG CAPSULE PO PRN (16:00)
[2021-08-24] MEDS: ENOXAPARIN 30 MG/0.3 ML SQ SCH (16:00)
[2021-08-24] MEDS ORDERED: ONDANSETRON 4 MG (ODT) TAB PO PRN (16:00)
[2021-08-24] MEDS ORDERED: PNEUMOCOCCAL VACCINE 0.5 ML IMVAC ONE (16:00)
[2021-08-24 16:01] LABS: Protime INR 1.06
--- NOTE | 2021-08-24 16:07 | RAD REPORT ---
EXAM DESCRIPTION: RAD - Chest Single View - 08/24/2021 3:50 pm CLINICAL HISTORY: weakness COMPARISON: Chest Single View dated 09/23/2020; Chest Pa And Lat (2 Views) dated 10/21/2019; Chest S fabiano View dated 03/18/2019; CHEST PA AND LAT 2 VIEW dated 08/29/2011 FINDINGS: Lines: None. Lungs: No evidence of edema or pneumonia. Pleural: No significant pleural effusions or pneumothorax. Cardiac: The heart size is within normal limits. Bones: No acute fractures. Other: IMPRESSION: No acute cardiopulmonary disease.
[2021-08-24 17:19] LABS: AST/SGOT 275 U/L (15-37); Albumin 3.2 g/dL (3.4-5.0); Alkaline Phosphatase 620 U/L (45-117); BUN Blood Urea Nitrogen 16 mg/dL (7-18); Bicarbonate 25 mmol/L (21-32); Bilirubin Direct 9.7 mg/dL (0-0.2); Glucose Level 245 mg/dL (74-106); Phosphorus 2.7 mg/dL (2.5-4.9); Potassium 4.2 mmol/L (3.5-5.1); Protein, Total 7.2 g/dL (6.4-8.2); Sodium Level 133 mmol/L (136-145); Thyroid Stimulating Hormone 0.719 uIU/mL (0.360-3.740)
[2021-08-24 17:26] VITALS: BMI 19.2
[2021-08-24 17:37] LABS: ALT/SGPT 450 U/L (12-78)
--- NOTE | 2021-08-24 19:13 | RAD REPORT ---
EXAM DESCRIPTION: CT - Abdomen Pelvis W Contrast - 08/24/2021 5:54 pm CLINICAL HISTORY: pancreatic mass COMPARISON: Abdomen Pelvis W Contrast dated 09/23/2020; Abdomen WWo Cont dated 10/07/2020 TECHNIQUE: Biphasic, helical CT imaging of the abdomen and pelvis was performed following 100 ml non -ionic IV contrast. Oral contrast was given. All CT scans are performed using dose optimization technique as appropriate and may include automated exposure control or mA/KV adjustment according to patient size. FINDINGS: No suspicious findings in the lung bases. Liver size is normal with no focal parenchymal lesion identified. No splenomegaly or focal splenic ab normality. No portal vein thrombus. Marked dilatation of the gallbladder is present along with pronounced intrahepatic and extrahepatic b iliary tree dilatation. Gallbladder and biliary findings are new or substantially progressive from 2019. There is pronounced dilatation of the pancreatic duct into the head of the pancreas. A 3.4 centimeter pancreatic head mass is present. This measurement is potentially inclusive of some normal pancreatic tissue. The known pancreatic mass is not sharply demarcated from any adjacent pancreatic tissue. The re is an overall significant fullness in the pancreatic head compared to prior imaging indicating scott wth of the previously detailed mass. A few small peripancreatic lymph nodes are present but no bulky lymphadenopathy is seen. Symmetric renal function is seen with no hydronephrosis or suspicious renal mass. No pyelonephritis o r acute parenchymal process. Distended urinary bladder shows no acute finding. No adrenal abnormaliti es. No gastric dilatation or gastric wall thickening. Large stool volume fills but does not dilate the co honorio. No emergent bowel process identifiable. Residual or recurrent right inguinal hernia is present. This contains the appendix. No acute appendix findings. Surgical clips are present from prior inguina l or lower abdominal wall surgical procedure. No free air or pneumatosis. No abnormal free fluid collection. No bulky lymphadenopathy. No omental thickening. No suspicious bony findings. 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 This measurement may include some normal pancreatic tissue though there is clear ly interval enlargement of the mass since prior imaging. Pancreatic head mass causes biliary obstruction. There is marked dilatation of the biliary tree and g allbladder. Significant pancreatic duct dilatation from obstruction also present. This is not substa ntially different. A few small scattered lymph nodes are present but no bulky lymphadenopathy, metastatic liver disease or other findings of carcinomatosis.
[2021-08-24] MEDS ORDERED: GLUCAGON 1 MG/VIAL IM PRN (21:30)
[2021-08-24] MEDS ORDERED: D50W 25 GM/50 ML SYRINGE IV PRN (21:30)
[2021-08-24] MEDS ORDERED: ALPRAZOLAM 0.25 MG TABLET PO PRN (21:31)
[2021-08-24] MEDS: INSULIN -REGULAR HUMAN 50 UNIT/0.5 ML ML SQ SCH (21:47)
[2021-08-24] MEDS ORDERED: GABAPENTIN 100 MG CAP PO SCH (22:00)
[2021-08-25 03:23] LABS: Urine Appearance CLEAR (Clear); Urine Blood NEGATIVE (Negative); Urine Color DK YELLOW (Yellow); Urine Glucose 3+ (Negative); Urine Protein NEGATIVE (Negative); Urine Specific Gravity >=1.030 (1.005-1.030); Urine Urobilinogen 0.2 mg/dL (0.2-1.0); Urine pH 5.5 (5.0-7.0)
[2021-08-25 03:28] LABS: Urine Microscopic Reflex NO UMIC
[2021-08-25 03:31] LABS: Urine Bilirubin 3+ (Negative)
[2021-08-25 06:09] LABS: Absolute Lymphocytes (CBC) 0.7 K/uL (0.7-4.9); Basophils % 1.1 % (0-1.3); Hematocrit 31.4 % (39.6-49.0); Lymphocytes % 33.3 % (15.3-44.8); MPV 8.3 fL (7.6-11.3); RBC Red Blood Cell Count 3.67 M/uL (4.33-5.43)
[2021-08-25 06:28] LABS: BUN Blood Urea Nitrogen 14 mg/dL (7-18); Bicarbonate 26 mmol/L (21-32); Glucose Level 129 mg/dL (74-106); Magnesium 1.9 mg/dL (1.8-2.4); Potassium 3.5 mmol/L (3.5-5.1); Sodium Level 134 mmol/L (136-145)
[2021-08-25] MEDS: INSULIN -REGULAR HUMAN 50 UNIT/0.5 ML ML SQ SCH ×2 (07:30→11:30)
[2021-08-25] MEDS ORDERED: [UNRECOGNIZED DRUG - OTHER] SQ SCH (08:00)
[2021-08-25] MEDS ORDERED: POTASSIUM 25 MEQ EFFERV TAB PO ONE (08:00)
[2021-08-25] MEDS ORDERED: INSULIN DEGLUDEC 200 UNIT/ML SQ SCH (08:00)
[2021-08-25] MEDS ORDERED: PIOGLITAZONE 15 MG TAB PO SCH (09:00)
[2021-08-25] MEDS ORDERED: PANTOPRAZOLE 40MG TABLET PO SCH (09:00)
[2021-08-25 09:38] VITALS: O2SAT 92
[2021-08-25 09:40] VITALS: BP 114/49; TEMP 97.6
[2021-08-25] MEDS: ENOXAPARIN 30 MG/0.3 ML SQ SCH (09:46)
[2021-08-25] MEDS ORDERED: REPAGLINIDE 0.5 MG TABLET PO SCH (12:00)
[2021-08-25] MEDS ORDERED: PRANDIN PO SCH (12:00)
[2021-08-25] MEDS ORDERED: ATORVASTATIN 10 MG TAB PO SCH (21:00)
--- NOTE | 2021-08-25 21:32 | P.DS ---
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 HE IS CLOSE TO 89. I TALKED TO DR. FELIZ WHO HAS SEEN HIM BEFORE AND CONFRIMED THAT HE WILL NOT DO ANYTHING AT THIS POINT TO TREAT OR BIOSPY THIS MASS. I ASKED HIM IF PUTTING A STENT IN WILL HELP REDUCE HIS ITCHING. HE SAYS THAT WILL. HERNANDEZ AND MAXI DO NOT WANT TO DO STENT AT PRESENT. CALLED IN MASSIMO AND DIVINA FROM OFFICE TO SEE IF IT HELPS. IF ITCHING NOT CONTROLLED HE WILL GO FOR STENT. Vital Signs/Physical Exam: Temp Pulse Resp BP Pulse Ox 97.6 F 67 16 114/49 L 97 08/25/21 08:00 08/25/21 08:00 08/25/21 08:00 08/25/21 08:00 08/25/21 08:00 General: Oriented x3, Cachectic, Mild distress HEENT: Atraumatic, PERRLA, EOMI, Scleral icterus Neck: Supple, JVD not distended Respiratory: Clear to auscultation bilaterally, Normal air movement Cardiovascular: Regular rate/rhythm, Normal S1 S2 Gastrointestinal: Normal bowel sounds, No tenderness Musculoskeletal: No tenderness Integumentary: No rashes Neurological: Normal speech, Normal tone, Normal affect Lymphatics: No axilla or inguinal lymphadenopathy Laboratory Data at Discharge: WBC 2.00 K/uL (4.3-10.9) L 08/25/21 05:50 Hgb 10.9 g/dL (13.6-17.9) L 08/25/21 05:50 Hct 31.4 % (39.6-49.0) L 08/25/21 05:50 Plt Count 131 K/uL (152-406) L 08/25/21 05:50 PT 12.2 SECONDS (9.5-12.5) 08/24/21 15:39 INR 1.06 08/24/21 15:39 APTT 33.3 SECONDS (24.3-36.9) 08/24/21 15:39 Sodium 134 mmol/L (136-145) L 08/25/21 05:50 Potassium 3.5 mmol/L (3.5-5.1) 08/25/21 05:50 BUN 14 mg/dL (7-18) 08/25/21 05:50 Creatinine 0.71 mg/dL (0.55-1.3) 08/25/21 05:50 Glucose 129 mg/dL (74-106) H 08/25/21 05:50 Phosphorus 2.7 mg/dL (2.5-4.9) 08/24/21 15:39 Magnesium 1.9 mg/dL (1.8-2.4) 08/25/21 05:50 Total Bilirubin 12.0 mg/dL (0.2-1.0) H* 08/24/21 15:39 AST 275 U/L (15-37) H 08/24/21 15:39 ALT 450 U/L (12-78) H* 08/24/21 15:39 Alkaline Phosphatase 620 U/L (45-117) H 08/24/21 15:39 Home Medications: Gabapentin 100 mg PO BEDTIME 03/18/19 Simvastatin 20 mg PO BEDTIME 03/18/19 Esomeprazole Magnesium [Nexium] 20 mg PO DAILY 08/24/21 Insulin Degludec [Tresiba Flextouch U-200] 10 units SQ BREAKFAST 08/24/21 Pioglitazone [Actos] 15 mg PO DAILY 08/24/21 Repaglinide [Prandin] 2 mg PO LUNCH 08/24/21 Physician Discharge Instructions: PROBLEM: Weight loss, jaundice GOAL: Clear understanding of disease process INSTRUCTIONS: Ok to discharge home Dr. Pope will arrange hospice from office Contact Dr. Pope for any questions or concerns Continue home medications Call [phone] for any questions regarding hospital stay Diet: As tolerated Activity: As tolerated COMM[employer]ITY [facility] Services Needed: Hospice Name of Company: Date or Referral: IMMUNIZATION Influenza Vaccine Indicated: Yes Influenza Vaccine Given: Date Given: Pneumonia Vaccine Indicated: No Pneumonia Vaccine Given: Date Given: Followup: Isaac Pope MD [ACTIVE - CAN ADMIT] - (Office will contact patient/familly to help arrange hospice)
[2021-08-31 01:22] LABS: Vitamin D 1,25-Dihydroxy Total 44 pg/mL (18-72); Vitamin D,1,25-OH2, D2 <8 pg/mL
== END 2021-08-25 10:58 | disposition home health service (06) | DRG 439 ==
LOC: 2ND 14:43 → OBSVTOIN 21:23
PROVIDERS: ADMIT Internal Medicine; ATTEND Internal Medicine
DX: K86.89 Other specified diseases of pancreas (principal); R64 Cachexia; Z68.1 Body mass index [BMI] 19.9 or less, adult; C25.9 Malignant neoplasm of pancreas, unspecified; E78.5 Hyperlipidemia, unspecified; I10 Essential (primary) hypertension; E11.9 Type 2 diabetes mellitus without complications; Z79.4 Long term (current) use of insulin; Z79.899 Other long term (current) drug therapy; Z88.8 Allergy status to other drugs, medicaments and biological substances; Z20.822 Contact with and (suspected) exposure to COVID-19
CPT/HCPCS: 36415; 71045; 74177; 80048; 80076; 81003; 82306; 82607; 82652; 82947; 83735; 84100; 84443; 85025; 85379; 85610; 85730; G0378; G0379; J1650; Q9967; U0003